=== PATIENT | female | born 1955 | race Caucasian/White ===

== ENCOUNTER → 2021-06-16 | Outpatient (CLI) | payer MEDICARE, OTHER ==
[2021-06-16 15:11] VITALS: BP 156/104; PULSE 85; RESP 16; TEMP 98.1; BMI 38.2
--- NOTE | 2021-06-16 15:30 | P.BASOAP ---
Subjective Progress Note Date: 06/16/21 Principal diagnosis: Morbid obesity Patient presents to the bariatric clinic with complaints of dysphagia and vomiting. Says is been present for the last 1-2 years. Had a lap band placed many years ago. Has not followed up with us for quite some time. She thought her band had been emptied at the time of her last hospital visit. Says her symptoms improved slightly with omeprazole but does not take it daily. Objective - Vital Signs Vital signs: Vital Signs Temp 98.1 F 06/16/21 15:09 Pulse 85 06/16/21 15:09 Resp 16 06/16/21 15:09 BP 156/104 06/16/21 15:09 Pulse Ox Intake & Output 06/15/21 06/16/21 06/16/21 18:59 06:59 18:59 Weight 94.801 kg - Exam Abdomen: Soft, nontender, nondistended Assessment/Plan (1) Morbid obesity Narrative/Plan: Patient believes her band was emptied previously. We decided to access her band. After we accessed her band a total of 5 mL was found and removed sterilely. Patient is now empty. Will order esophagram and clinic follow-up in 4-6 weeks. Plan: Date: 06/16/21 Initial Weight: 94.801 kg Initial BMI: 38.2 Current Weight: 94.801 kg Current BMI: 38.2 Type of Surgery: Adjustable Gastric Banding Total Volume in Band: Previous Volume: Volume Removed: Volume Added: Band Size:
== END | disposition home or self-care (01) ==
LOC: BARWHC3 14:54
PROVIDERS: ATTEND Surgery
DX: E66.01 Morbid (severe) obesity due to excess calories (principal); Z68.38 Body mass index [BMI] 38.0-38.9, adult
CPT/HCPCS: 99212

== ENCOUNTER → 2021-08-27 | Outpatient (CLI) | payer MEDICARE, OTHER ==
[2021-08-27 15:37] VITALS: BP 177/99; PULSE 94; RESP 18; TEMP 97.9; BMI 40.2
--- NOTE | 2021-08-27 16:25 | P.BASOAP ---
Subjective Progress Note Date: 08/27/21 Principal diagnosis: Morbid obesity Patient returns for evaluation. She was last seen in June. The patient had 5 mL removed at that time. She had complete resolution of her dysphagia and vomiting issues. Doing well at this time. She was scheduled for an esophagram and a visit with myself next week but was canceled after I had an emergency. He esophagram was not rescheduled. Patient would like a fill. She has gained 11 pounds since her last visit. Objective - Vital Signs Vital signs: Vital Signs Temp 97.9 F 08/27/21 15:35 Pulse 94 08/27/21 15:35 Resp 18 08/27/21 15:35 BP 177/99 08/27/21 15:35 Pulse Ox Intake & Output 08/26/21 08/27/21 08/27/21 18:59 06:59 18:59 Weight 99.79 kg - Exam Abdomen: Soft, nontender, nondistended Assessment/Plan (1) Morbid obesity Narrative/Plan: 66-year-old female with morbid obesity. Options reviewed. We'll proceed with LAP-BAND adjustment at this time. We'll add 2 mL. Check esophagogram next visit. The patient's lap band port was palpated. The site was aseptically prepped. The Mcneal needle was advanced into the port. A total of 2 ml of fluid was added. Pressure was held and a sterile dressing was applied. Plan: Date: 08/27/21 Initial Weight: 94.801 kg Initial BMI: 38.2 Current Weight: 99.79 kg Current BMI: 40.2 Type of Surgery: Adjustable Gastric Banding Total Volume in Band: 0 Previous Volume: Volume Removed: Volume Added: Band Size:
== END | disposition home or self-care (01) ==
LOC: BARWHC3 15:10
PROVIDERS: ATTEND Surgery
DX: E66.01 Morbid (severe) obesity due to excess calories (principal); Z68.41 Body mass index [BMI] 40.0-44.9, adult
CPT/HCPCS: 99212

== ENCOUNTER → 2021-09-29 | Outpatient (CLI) | payer MEDICARE ==
--- NOTE | 2021-09-29 16:43 | FL ---
EXAMINATION TYPE: FL single contrast barium swallow DATE OF EXAM: 09/29/2021 CLINICAL INDICATION: 66-year-old female R10.13, dysphagia, patient with lap band and removal of fluid 2 months ago and improvement of symptoms of food sticking and vomiting. COMPARISON: None Total Fluoroscopy Time: 54 seconds 18 images obtained. FINDINGS: Patient swallowed thin barium without difficulty or delay. Mild tertiary peristaltic contractions are demonstrated. There is normal course and caliber of the thoracic esophagus. There is prompt passage of contrast across the GE junction and subsequently across the lap band devic e which is appropriately positioned. No hiatal hernia is identified. There is no restriction to the passage of contrast across the lap band. IMPRESSION: 1. No evidence for lap band prolapse. 2. Widely patent lap band without any significant obstruction.
== END | disposition home or self-care (01) ==
LOC: RADUSWWP 12:51
PROVIDERS: ATTEND Surgery
DX: R13.10 Dysphagia, unspecified (principal)
CPT/HCPCS: 74220

== ENCOUNTER → 2021-09-29 | Outpatient (CLI) | payer MEDICARE ==
[2021-09-29 14:05] VITALS: BP 164/86; PULSE 90; TEMP 98; BMI 42.4
--- NOTE | 2021-09-29 14:14 | P.BASOAP ---
Subjective Progress Note Date: 09/29/21 Principal diagnosis: morbid obesity patient returns for reevaluation. She was last seen08/11. Complaining of headaches. The ER with complaints of headaches nausea and vomiting. Patient was referred to neurology. She has not seen them yet. She is due for repeat lab work. says she has episodes of nausea twice weekly. Still taking antiacids twice daily. Patient says she stopped seeing her primary care physician after a disagreement regarding tramadol. Objective - Vital Signs Vital signs: Vital Signs Temp 98 F 09/29/21 14:02 Pulse 90 09/29/21 14:02 Resp BP 164/86 09/29/21 14:02 Pulse Ox Intake & Output 09/28/21 09/29/21 09/29/21 18:59 06:59 18:59 Weight 105.233 kg - Exam Abdomen: Soft, nontender, nondistended Assessment/Plan (1) Morbid obesity Narrative/Plan: continue antiacid therapy. Recheck three-month labs at this time. Patient will see neurology. Referral for Dr. Winchester will be provided. Follow-up 6 weeks. Plan: Date: 09/29/21 Initial Weight: 94.801 kg Initial BMI: 38.2 Current Weight: 105.233 kg Current BMI: 42.4 Type of Surgery: Total Volume in Band: 4 Previous Volume: Volume Removed: Volume Added: 2 Band Size:
--- NOTE | 2021-09-29 14:34 | P.BASOAP ---
Subjective Progress Note Date: 09/29/21 Principal diagnosis: morbid obesity Patient returns for evaluation. She had her esophagram performed. Upper GI looks good. No evidence of prolapse or significant narrowing at band site. Patient would like more fluid added. 2 visits ago the patient had 5 mL removed. Last visit we added 2 mL back. She is going to [place] in December and wants to lose weight for that trip. Objective - Vital Signs Vital signs: Vital Signs Temp 98 F 09/29/21 14:02 Pulse 90 09/29/21 14:02 Resp BP 164/86 09/29/21 14:02 Pulse Ox Intake & Output 09/28/21 09/29/21 09/29/21 18:59 06:59 18:59 Weight 105.233 kg - Exam Abdomen: Soft, nontender, nondistended Assessment/Plan (1) Morbid obesity Narrative/Plan: Patient doing well at this time. Would like more fluid added. After reviewing upper GI we have decided and 2 mL to the band. The patient's lap band port was palpated. The site was aseptically prepped. The Mcneal needle was advanced into the port. A total of 2 ml of fluid was added for a total of 4 mL.. Pressure was held and a sterile dressing was applied.
== END | disposition home or self-care (01) ==
LOC: BARWHC3 13:39
PROVIDERS: ATTEND Surgery
DX: E66.01 Morbid (severe) obesity due to excess calories (principal)
CPT/HCPCS: 99212

== ENCOUNTER → 2022-04-13 | Outpatient (CLI) | payer MEDICARE ==
--- NOTE | 2022-04-14 06:31 | CONS ---
CONSULTATION CHIEF COMPLAINT: Morbid obesity. HISTORY OF PRESENT ILLNESS: The patient presents for a lap band adjustment. She has gained 20 pounds after we added 4 mL to her band. She would like more fluid added. PHYSICAL EXAMINATION: ABDOMEN: Soft, nontender, nondistended. PLAN: We will proceed with band adjustment at this time. 0.5 mL was added using aseptic sterile technique for a total of 4.5 mL. The patient will follow up in 1 month if further fills requested. She was too tight previously at 5 mL. MMODL / IJN: [id number] /
[2022-04-14 11:30] VITALS: BP 155/82; PULSE 82; TEMP 98; BMI 46.3
== END | disposition home or self-care (01) ==
LOC: BARWHC3 20:28
PROVIDERS: ATTEND Surgery
DX: E66.01 Morbid (severe) obesity due to excess calories (principal)
CPT/HCPCS: 99212

== ENCOUNTER → 2022-06-15 | Outpatient (CLI) | payer MEDICARE ==
[2022-06-15 14:05] VITALS: BP 155/74; PULSE 82; TEMP 98; BMI 47.0
--- NOTE | 2022-06-15 22:27 | P.BASOAP ---
Subjective Progress Note Date: 06/15/22 Principal diagnosis: Morbid obesity Patient returns for recheck. She is requesting more fluid added to her band. She was too tight at 5 mL. She would like to try 4.9 mL. Denies nausea vomiting. No reflux. No dysphagia. Objective - Vital Signs Vital signs: Vital Signs Temp 98 F 06/15/22 13:56 Pulse 82 06/15/22 13:56 Resp BP 155/74 06/15/22 13:56 Pulse Ox FiO2 Intake & Output 06/15/22 06/15/22 06/16/22 06:59 18:59 06:59 Weight 116.573 kg - Exam Abdomen: Soft, nontender, nondistended Assessment/Plan (1) Morbid obesity Narrative/Plan: Options review the patient. We'll try 4.9 mL. The patient's lap band port was palpated. The site was aseptically prepped. The Mcneal needle was advanced into the port. A total of 0.4 ml of fluid was added for a total 4.9 mL.. Pressure was held and a sterile dressing was applied. 0.4 Plan: Date: 06/15/22 Initial Weight: 94.801 kg Initial BMI: 38.2 Current Weight: 116.573 kg Current BMI: 47.0 Type of Surgery: Total Volume in Band: 4.5 Previous Volume: Volume Removed: Volume Added: Band Size:
== END ==
LOC: BARWHC3 13:24
PROVIDERS: ATTEND Surgery
DX: E66.01 Morbid (severe) obesity due to excess calories (principal); Z68.42 Body mass index [BMI] 45.0-49.9, adult
CPT/HCPCS: 99212